=== PATIENT | female | born 1945 | race Two or more races ===

== ENCOUNTER → 2020-05-19 | Outpatient (CLI) | payer OTHER ==
[2020-05-19 12:01] LABS: Phenytoin (Dilantin) 22.7 ug/mL (10-20)
== END | disposition home or self-care (01) ==
LOC: LAB 10:22
PROVIDERS: ATTEND Psychiatry & Neurology Neurology
DX: R56.9 Unspecified convulsions (principal)
CPT/HCPCS: 36415; 80184; 80185

== ENCOUNTER 2022-06-21 10:17 | Emergency (ER) | payer OTHER ==
[~2022-06-21] VITALS: Ht 167.6 cm; Wt 54.5 kg
[2022-06-21 10:28] VITALS: BP 128/55
[2022-06-21 10:41] LABS: Basophils # (auto) 0 10 ^3/uL (0-0.2); Basophils % (auto) 0.3 % (0.0-2.0); Eosinophils # (auto) 0 10 ^3/uL (0-0.8); Eosinophils % (auto) 0.3 % (0.0-7.0); Hematocrit 42.4 % (36.0-46.0); Hemoglobin 14.6 g/dL (12.2-16.2); Lymphocytes # (auto) 1.7 10 ^3/uL (0.4-5.4); Lymphocytes % (auto) 15.9 % (10.0-50.0); Mean Corpuscular Hemoglobin 32.9 pg (28.0-32.0); Mean Corpuscular Hgb Conc. 34.5 g/dL (32.0-36.0); Mean Corpuscular Volume 95.5 fL (80.0-100.0); Monocytes # (auto) 0.9 10 ^3/uL (0-1.3); Monocytes % (auto) 8.6 % (0.0-12.0); Neutrophils # (auto) 8.2 10 ^3/uL (1.6-8.6); Neutrophils % (auto) 74.9 % (37.0-80.0); Nucleated Red Blood Cells % 0.1 %; Red Blood Cells 4.44 10^6/uL (4.0-5.20); Red Cell Distribution Width 13.4 % (11.8-14.3); White Blood Cell 10.9 10^3/uL (4.4-10.8)
[2022-06-21 11:06] LABS: Albumin 3.6 g/dL (3.4-5.0); Calcium 8.5 mg/dL (8.5-10.1); Potassium 3.4 mmol/L (3.5-5.1)
[2022-06-21 11:09] LABS: BUN/Creatinine Ratio 18.2
[2022-06-21 11:12] LABS: Bilirubin, Total 0.6 mg/dL (0.2-1.0); Total Protein 6.9 g/dL (6.4-8.2)
[2022-06-21] MEDS ORDERED: cefTRIAXone 1GM/50ML D5W 50 ML IV ONE (12:15)
[2022-06-21] MEDS ORDERED: SODIUM CHLORIDE 0.9% 1,000 ML IV ONE (12:15)
== END 2022-06-21 15:11 | disposition home or self-care (01) ==
LOC: ER 10:17
DX: R07.89 Other chest pain (principal); B34.9 Viral infection, unspecified; Z90.49 Acquired absence of other specified parts of digestive tract; Z88.6 Allergy status to analgesic agent
CPT/HCPCS: 36415; 71045; 80053; 84484; 85025; 93005

== ENCOUNTER 2022-11-24 12:37 | Inpatient (IN) | payer OTHER ==
[~2022-11-24] VITALS: Ht 160 cm; Wt 65.9 kg
[2022-11-24 14:04] LABS: Basophils # (auto) 0 10 ^3/uL (0-0.2); Eosinophils # (auto) 0 10 ^3/uL (0-0.8); Eosinophils % (auto) 0.1 % (0.0-7.0); Lymphocytes # (auto) 0.8 10 ^3/uL (0.4-5.4); Lymphocytes % (auto) 6.7 % (10.0-50.0); Mean Corpuscular Hemoglobin 33.1 pg (28.0-32.0); Mean Corpuscular Hgb Conc. 35.1 g/dL (32.0-36.0); Mean Corpuscular Volume 94.4 fL (80.0-100.0); Monocytes # (auto) 0.9 10 ^3/uL (0-1.3); Monocytes % (auto) 8.3 % (0.0-12.0); Neutrophils # (auto) 9.6 10 ^3/uL (1.6-8.6); Neutrophils % (auto) 84.9 % (37.0-80.0); Red Blood Cells 4.24 10^6/uL (4.0-5.20); Red Cell Distribution Width 13.1 % (11.8-14.3); White Blood Cell 11.3 10^3/uL (4.4-10.8)
[2022-11-24 14:32] LABS: Albumin 3.6 g/dL (3.4-5.0); Calcium 7.6 mg/dL (8.5-10.1); Potassium 3.1 mmol/L (3.5-5.1)
[2022-11-24 14:38] LABS: BUN/Creatinine Ratio 14.1 (10.0-20.0); Bilirubin, Total 0.4 mg/dL (0.2-1.0); Total Protein 6.6 g/dL (6.4-8.2)
[2022-11-24 15:19] LABS: Urine Bacteria NONE SEEN /hpf (None Seen); Urine Blood Negative /uL (Negative); Urine Clarity Clear (Clear); Urine Color Yellow (Yellow); Urine Mucus FEW (None Seen); Urine Protein, UAD TRACE (Negative); Urine Specific Gravity 1.025 (1.001-1.035); Urine Urobilinogen Normal (Negative); Urine WBC 2 /hpf (0 - 5)
[2022-11-24] MEDS ORDERED: SODIUM CHLORIDE 0.9% 1,000 ML IV ONE ×2 (16:15)
[2022-11-24] MEDS ORDERED: SODIUM CHL 3% 500 ML IV ONE ×2 (17:45→18:00)
[2022-11-24] MEDS ORDERED: NITROGLYCERIN 0.4 MG SL TAB SL PRN (18:15)
[2022-11-24] MEDS ORDERED: ONDANSETRON HCL 4 MG/2 ML VIAL IV PRN (18:15)
[2022-11-24] MEDS ORDERED: ACETAMINOPHEN 325 MG TAB PO PRN (18:15)
[2022-11-24] MEDS ORDERED: MORPHINE SULFATE INJ 2 MG/ml SYRG IV PRN (18:15)
[2022-11-24] MEDS ORDERED: SOD CHL 0.9%/ KCL 20MEQ 1,000 ML IV SCH (18:15)
[2022-11-24 20:20] LABS: Calcium 7.5 mg/dL (8.5-10.1)
[2022-11-24 21:04] LABS: Potassium 2.9 mmol/L (3.5-5.1)
[2022-11-24] MEDS ORDERED: POTASSIUM CHL 20 Meq TABLET PO ONE (21:45)
[2022-11-25] VITALS (11 sets, daily range): BP systolic 126–148; BP diastolic 54–77; PULSE 72–86; RESP 11–22; TEMP 98.7–98.9; O2SAT 94–100
[2022-11-25 04:37] LABS: BUN/Creatinine Ratio 11.9 (10.0-20.0); Calcium 7.3 mg/dL (8.5-10.1); Magnesium 2.3 mg/dL (1.6-2.6); Potassium 3.3 mmol/L (3.5-5.1)
[2022-11-25 08:28] LABS: BUN/Creatinine Ratio 9.4 (10.0-20.0); Calcium 7.7 mg/dL (8.5-10.1)
[2022-11-25] MEDS: ENOXAPARIN SOD 40 MG/0.4 ML SYRINGE SC SCH (10:41)
[2022-11-25] MEDS ORDERED: D5W 5% 500 ML IV ONE (13:15)
[2022-11-25] MEDS ORDERED: PHENYTOIN SODIUM 50 MG/ML 2ML VIAL IV ONE (13:15)
[2022-11-25] MEDS ORDERED: D5W 5% 1,000 ML IV SCH (13:15)
[2022-11-25] MEDS ORDERED: POTASSIUM CHLORIDE 40 MEQ, LIDOCAINE 1% (LOCAL ANESTH.) 4 ML in SODIUM CHL 0.9% 250 ML IV ONE (13:15)
[2022-11-25] MEDS ORDERED: DESMOPRESSIN ACET 4 MCG/1 ML AMPULE IV SCH (13:30)
[2022-11-25 14:04] LABS: INR 1.04 (0.9-1.15); Partial Thromboplastin Time 30.6 SEC (24.5-34.5); Prothrombin Time 10.9 sec (9.3-11.8)
[2022-11-25] MEDS: D5W 5% 1,000 ML IV SCH ×2 (14:33→18:41)
[2022-11-25 15:21] LABS: BUN/Creatinine Ratio 6.7 (10.0-20.0); Potassium 3.1 mmol/L (3.5-5.1)
[2022-11-25 17:44] LABS: BUN/Creatinine Ratio 7.5 (10.0-20.0); Calcium 7.5 mg/dL (8.5-10.1); Potassium 3.5 mmol/L (3.5-5.1)
[2022-11-25] MEDS: POTASSIUM CHL 20 Meq TABLET PO SCH ×2 (17:50→19:57)
[2022-11-25 19:43] LABS: BUN/Creatinine Ratio 6.7 (10.0-20.0); Calcium 7.1 mg/dL (8.5-10.1); Potassium 3.6 mmol/L (3.5-5.1)
[2022-11-25 21:17] LABS: BUN/Creatinine Ratio 4.9 (10.0-20.0); Calcium 7.2 mg/dL (8.5-10.1); Potassium 3.7 mmol/L (3.5-5.1)
[2022-11-25] MEDS: PHENYTOIN 100 MG PO SCH (21:37)
[2022-11-25] MEDS: PHENobarbital 20 MG/5 ML UD PO SCH (21:38)
[2022-11-25] MEDS ORDERED: PHENobarbital SODIUM 65 MG/ML VL IM ONE (22:00)
[2022-11-25] MEDS ORDERED: PHENYTOIN SODIUM 100 MG CAP PO ONE (22:00)
[2022-11-25] MEDS ORDERED: PHENYTOIN 50 MG PO SCH (22:00)
[2022-11-25] MEDS ORDERED: OMEP1CAP70 PO (22:04)
[2022-11-25] MEDS ORDERED: LACT10SO3 PO (22:04)
[2022-11-26] VITALS (19 sets, daily range): BP systolic 104–140; BP diastolic 41–66; PULSE 68–90; RESP 10–18; TEMP 98.2–98.5; O2SAT 96–99
[2022-11-26] MEDS: ENOXAPARIN SOD 40 MG/0.4 ML SYRINGE SC SCH (08:06)
[2022-11-26 09:43] LABS: Anion Gap 7 (5-15); BUN/Creatinine Ratio 9.3 (10.0-20.0); Blood Urea Nitrogen 5 mg/dL (7-18); Carbon Dioxide 22 mmol/L (21-32); Chloride 100 mmol/L (98-107); GFR African American 142 mL/min; GFR Non-African American 117 mL/min; Glucose 105 mg/dL (74-106); Potassium 4.7 mmol/L (3.5-5.1); Sodium 129 mmol/L (136-145)
[2022-11-26 09:44] LABS: Calcium 7.6 mg/dL (8.5-10.1)
[2022-11-26 11:16] LABS: Potassium 4.1 mmol/L (3.5-5.1)
[2022-11-26 14:35] LABS: BUN/Creatinine Ratio 10.6 (10.0-20.0); Calcium 7.9 mg/dL (8.5-10.1); Potassium 4.2 mmol/L (3.5-5.1)
[2022-11-26] MEDS ORDERED: SODIUM CHLORIDE 1 GM TAB PO SCH (17:00)
[2022-11-26] MEDS ORDERED: UREA 15gm PO Powder PKG PO SCH ×2 (18:00)
[2022-11-26 18:48] LABS: BUN/Creatinine Ratio 13.8 (10.0-20.0); Potassium 4.7 mmol/L (3.5-5.1)
[2022-11-26] MEDS: PHENobarbital 20 MG/5 ML UD PO SCH (21:00)
[2022-11-26] MEDS: PHENYTOIN 100 MG PO SCH (21:00)
[2022-11-26] MEDS: PHENYTOIN 50 MG PO SCH (21:00)
[2022-11-26 22:54] LABS: BUN/Creatinine Ratio 37.9 (10.0-20.0); Potassium 4.5 mmol/L (3.5-5.1)
[2022-11-27] VITALS (9 sets, daily range): BP systolic 104–133; BP diastolic 46–59; PULSE 59–94; RESP 13–16; TEMP 97.8–98.6; O2SAT 95–99
[2022-11-27 04:47] LABS: BUN/Creatinine Ratio 35.7 (10.0-20.0); Potassium 5.1 mmol/L (3.5-5.1)
[2022-11-27] MEDS: PHENYTOIN 50 MG PO SCH (07:31)
[2022-11-27] MEDS: ENOXAPARIN SOD 40 MG/0.4 ML SYRINGE SC SCH (07:31)
[2022-11-27 11:04] LABS: BUN/Creatinine Ratio 21.3 (10.0-20.0); Calcium 8.3 mg/dL (8.5-10.1); Potassium 3.8 mmol/L (3.5-5.1)
== END 2022-11-27 17:25 | disposition home health service (06) | DRG 101 ==
LOC: ER 12:37 → TELE 18:21 → OVERFLOW 11-25 13:13 → DOU IN ICU 11-25 15:20
PROVIDERS: ADMIT Hospitalist; ATTEND Hospitalist
DX: G40.909 Epilepsy, unspecified, not intractable, without status epilepticus (principal); E22.2 Syndrome of inappropriate secretion of antidiuretic hormone; E87.6 Hypokalemia; F32.A Depression, unspecified; Z91.148 Patient's other noncompliance with medication regimen for other reason; Z87.820 Personal history of traumatic brain injury; Z90.49 Acquired absence of other specified parts of digestive tract
CPT/HCPCS: 36415; 70450; 71045; 80048; 80053; 80184; 80185; 81001; 83735; 83880; 83930; 83935; 84295; 84300; 84484; 85025; 85610; 85730; 87081; 97110; 97116; 97163; 97530; G0378; J2001